=== PATIENT | female | born 1965 | race Caucasian/White ===

== ENCOUNTER 2021-10-10 00:49 | Emergency (ER) | payer BC ==
[~2021-10-10] VITALS: Ht 162.6 cm; Wt 71.7 kg
[2021-10-10 01:18] VITALS: BP_SYST 111
--- NOTE | 2021-10-10 01:18 | NUR ---
Patient brought in from home ANO x4 complaining of blood in her left eye. Blood noted in her sclera. Patient denies any trauma or blurred vision or pain. Patient triaged and placed in waiting room. VSS and patient appears in no acute distress at this time. Accompanied by self, awaiting available bed, and MD notified of need for MSE.
--- NOTE | 2021-10-10 02:51 | NUR ---
Dr. Kvng Beaulieu in triage examining patient with Adams lamp.
[2021-10-10] MEDS ORDERED: NAPH15DR52 LEFT EYE (02:52)
[2021-10-10 03:03] VITALS: BP_SYST 112
--- NOTE | 2021-10-10 03:03 | NUR ---
Patient given written and verbal discharge instructions and verbalizes understanding. ER MD discussed with patient the results and treatment provided. Patient in stable condition. ID arm band removed. Rx of vasocon given. Patient educated on pain management and to follow up with PMD. Pain Scale 0/10 Opportunity for questions provided and answered. Medication side effect fact sheet provided.
== END 2021-10-10 03:03 | disposition home or self-care (01) ==
LOC: SED 00:49
DX: H11.32 Conjunctival hemorrhage, left eye (principal); Z79.899 Other long term (current) drug therapy
CPT/HCPCS: 99283; 99284